=== PATIENT | male | born 1985 | race Caucasian/White ===

== ENCOUNTER 2022-02-03 16:22 | Emergency (ER) | payer SELFPAY ==
[~2022-02-03] VITALS: Ht 177.8 cm; Wt 72.6 kg
[2022-02-03 18:29] VITALS: BP 126/81
[2022-02-03] MEDS ORDERED: IBUPROFEN 800 MG TAB PO ONE (19:00)
[2022-02-03] MEDS ORDERED: IBUP800T27 PO (19:58)
[2022-02-03] MEDS ORDERED: DICL1GEL50 TD (19:58)
== END 2022-02-03 20:12 | disposition home or self-care (01) ==
LOC: ER 16:22
DX: S63.641A Sprain of metacarpophalangeal joint of right thumb, initial encounter (principal); F17.210 Nicotine dependence, cigarettes, uncomplicated; F12.10 Cannabis abuse, uncomplicated; J45.909 Unspecified asthma, uncomplicated; W19.XXXA Unspecified fall, initial encounter; Y93.89 Activity, other specified; Y92.89 Other specified places as the place of occurrence of the external cause; Y99.8 Other external cause status
CPT/HCPCS: 29125; 73130